=== PATIENT | male | born 1955 | race Caucasian/White ===

== ENCOUNTER 2016-09-04 16:42 | Emergency (ER) | payer OTHER ==
[~2016-09-04] VITALS: Ht 180.3 cm; Wt 98.9 kg
[~2016-09-04 16:42] MED LIST: AMOX500C25 PO; CEPH500C16 PO; IBUP-974 PO; METF500T64 PO; NORVASC; SULF1TAB12 PO; VAS10 PO; VASOTEC
[2016-09-04 17:07] VITALS: BP 164/83
--- NOTE | 2016-09-04 21:02 | NUR ---
PT TAKEN TO BED 7
--- NOTE | 2016-09-04 21:05 | NUR ---
PT IS 61/M BIB TO [facility] WITH C/O PT BEING REFERRED TO ER BY PCP FOR EVALUATION OF ELEVATED BLOOD SUGAR AND INTERMITTENT DIZZINESS SINCE THIS AM. HX DM, HTN, VERTIGO. DENIES V/D; SKIN IS PINK/WARM/DRY; AAOX4 WITH EVEN AND STEADY GAIT; LUNGS CLEAR BL; HR EVEN AND REGULAR; PT DENIES ANY FEVER, CP, SOB, OR COUGH AT THIS TIME; PATIENT STATES PAIN OF 0/10 AT THIS TIME; VSS; PATIENT POSITIONED FOR COMFORT; HOB ELEVATED; BEDRAILS UP X2; BED DOWN. ER MD MADE AWARE OF PT STATUS.
[2016-09-04] MEDS ORDERED: NACL 0.9% 1,000 ML IV ONE (21:10)
[2016-09-04] MEDS ORDERED: LISINOPRIL 5 MG TAB PO ONE (21:10)
[2016-09-04 21:30] LABS: BASOPHILS # (AUTO) 0.2 K/uL (0.00-0.22); BASOPHILS % (AUTO) 1.8 % (0.0-2.0); EOSINOPHILS # (AUTO) 0.1 K/uL (0-0.4); EOSINOPHILS % (AUTO) 1.6 % (0.0-4.0); HEMATOCRIT 46.4 % (36-52); HEMOGLOBIN 15.2 g/dL (12.0-18.0); LYMPHOCYTES # (AUTO) 1.6 K/uL (2.0-11.5); LYMPHOCYTES % (AUTO) 18.2 % (20.5-51.1); MEAN CORPUSCULAR HEMOGLOBIN 29 pg (27-31); MEAN CORPUSCULAR HGB CONC 33 g/dL (33-37); MEAN CORPUSCULAR VOLUME 87 fL (80-94); MONOCYTES # (AUTO) 0.5 K/uL (0.8-1.0); NEUTROPHILS # (AUTO) 6.4 K/uL (1.8-7.7); NEUTROPHILS % (AUTO) 72.4 % (42.2-75.2); PLATELET COUNT (AUTO) 228 K/uL (140-450); RED BLOOD CELL COUNT(AUTO) 5.32 MIL/uL (4.20-6.10); RED CELL DISTRIBUTION WIDTH 13.8 % (11.6-13.7); WHITE BLOOD COUNT (AUTO) 8.8 K/uL (4.8-10.8)
[2016-09-04] MEDS ORDERED: LISINOPRIL 10 MG TAB ONE (21:40)
--- NOTE | 2016-09-04 21:40 | NUR ---
ADMINISTERED 0.5 TAB OF 10MG LISINOPRIL. WASTED OTHER HALF OF TAB WITH HOUSE SUP ARMIDA.
[2016-09-04 21:41] LABS: ANION GAP 9.4 (8-16); CALCIUM 9.2 mg/dL (8.5-10.1); CARBON DIOXIDE 32.9 mmol/L (21-32); CREATININE 0.9 mg/dL (0.6-1.3); POTASSIUM 4.3 mmol/L (3.5-5.1)
[2016-09-04 21:48] LABS: ALBUMIN 3.9 g/dL (3.4-5.0); TOTAL BILIRUBIN 1.2 mg/dL (0.0-1.0); TOTAL PROTEIN, SERUM 7.1 g/dL (6.4-8.2)
[2016-09-04 21:50] LABS: INR 1.1 (0.8-1.2); PARTIAL THROMBOPLASTIN TIME 22.7 secs (22-35.6); PROTHROMBIN TIME 10.1 secs (10.8-13.4)
[2016-09-04] MEDS ORDERED: INSULIN HUMAN REGULAR 100 UNITS/ML 10 ML VIAL IVP ONE (22:00)
[2016-09-04 22:25] VITALS: BP 156/90
--- NOTE | 2016-09-04 22:26 | NUR ---
Patient discharged with v/s stable. Written and verbal after care instructions given and explained. Patient alert, oriented and verbalized understanding of instructions. Ambulatory with steady gait. All questions addressed prior to discharge. ID band removed. Patient advised to follow up with PMD. Rx of LISINOPRIL given. Patient educated on indication of medication including possible reaction and side effects. Opportunity to ask questions provided and answered.
== END 2016-09-04 22:26 | disposition home or self-care (01) ==
LOC: MED 16:42
DX: E11.65 Type 2 diabetes mellitus with hyperglycemia (principal); I10 Essential (primary) hypertension; J45.909 Unspecified asthma, uncomplicated; Z88.5 Allergy status to narcotic agent; Z79.899 Other long term (current) drug therapy
CPT/HCPCS: 36415; 80053; 82948; 85025; 85610; 85730; 96372; 99284; J1815; J7030

== ENCOUNTER 2018-12-21 17:32 | Emergency (ER) | payer OTHER ==
[~2018-12-21] VITALS: Ht 175.3 cm; Wt 90.7 kg
[~2018-12-21 17:32] MED LIST changes: +ENAL-197 PO; +GLU500 PO; -METF500T64 PO; -VAS10 PO
[2018-12-21 17:44] VITALS: BP 171/115
[2018-12-21 19:26] LABS: APPEARANCE,URINE CLEAR (CLEAR); BILIRUBIN,URINE NEGATIVE (NEGATIVE); BLOOD, URINE NEGATIVE (NEGATIVE); COLOR,URINE AMBER (YELLOW); LEUKOCYTE ESTERASE ,URINE NEGATIVE (NEGATIVE); NITRITE, URINE NEGATIVE (NEGATIVE); PH,URINE 5.5 (5.0-9.0); UGLUCOSE 1+ (NEGATIVE)
[2018-12-21 19:42] LABS: BASOPHILS # (AUTO) 0.1 K/uL (0.00-0.22); BASOPHILS % (AUTO) 0.8 % (0.0-2.0); EOSINOPHILS # (AUTO) 0.2 K/uL (0-0.4); EOSINOPHILS % (AUTO) 2.1 % (0.0-4.0); HEMATOCRIT 41.2 % (36-52); HEMOGLOBIN 14.2 g/dL (12.0-18.0); LYMPHOCYTES # (AUTO) 1.8 K/uL (2.0-11.5); LYMPHOCYTES % (AUTO) 23.3 % (20.5-51.1); MEAN CORPUSCULAR HEMOGLOBIN 29 pg (27-31); MEAN CORPUSCULAR HGB CONC 34 g/dL (33-37); MEAN CORPUSCULAR VOLUME 85.2 fL (80-94); MONOCYTES # (AUTO) 0.6 K/uL (0.8-1.0); MONOCYTES % (AUTO) 8.1 % (1.7-9.3); NEUTROPHILS # (AUTO) 5.1 K/uL (1.8-7.7); NEUTROPHILS % (AUTO) 65.7 % (42.2-75.2); PLATELET COUNT (AUTO) 249 K/uL (140-450); RED BLOOD CELL COUNT(AUTO) 4.83 MIL/uL (4.20-6.10); RED CELL DISTRIBUTION WIDTH 15.1 % (11.6-13.7); WHITE BLOOD COUNT (AUTO) 7.8 K/uL (4.8-10.8)
[2018-12-21 19:59] LABS: ANION GAP 14.7 (8-16); CARBON DIOXIDE 27.9 mmol/L (21-32); POTASSIUM 3.6 mmol/L (3.5-5.1)
[2018-12-21 20:03] LABS: PROTHROMBIN TIME 9.8 secs (10.8-13.4)
[2018-12-21 20:05] LABS: ALBUMIN 3.9 g/dL (3.4-5.0); TOTAL BILIRUBIN 1.1 mg/dL (0.0-1.0)
[2018-12-21] MEDS ORDERED: ASPIRIN 325 MG TAB PO ONE (21:15)
[2018-12-21 23:30] VITALS: BP 164/84
== END 2018-12-21 23:30 | disposition short-term general hospital (02) ==
LOC: MED 17:32
DX: G45.9 Transient cerebral ischemic attack, unspecified (principal); I10 Essential (primary) hypertension; E11.9 Type 2 diabetes mellitus without complications; J45.909 Unspecified asthma, uncomplicated; Z88.6 Allergy status to analgesic agent; Z79.2 Long term (current) use of antibiotics; Z79.84 Long term (current) use of oral hypoglycemic drugs; Z79.1 Long term (current) use of non-steroidal anti-inflammatories (NSAID)
CPT/HCPCS: 36415; 70450; 71045; 80053; 81003; 82948; 84484; 85025; 85610; 85730; 93005; 99285

== ENCOUNTER 2019-01-14 13:19 | Emergency (ER) | payer OTHER ==
[~2019-01-14] VITALS: Ht 177.8 cm; Wt 90.7 kg
--- NOTE | 2019-01-14 13:19 | NUR ---
Patient BIBA [facility] accompanied by Rocael CHAUDHRY, transferred to bed 4. RN evaluating patient at bedside.
[2019-01-14 13:20] VITALS: BP 141/78
--- NOTE | 2019-01-14 13:44 | NUR ---
63M PT BIBA C/O EPIGASTRIC PAIN LAST NIGHT AFTER TAKING GABAPENTIN, FEEL LIKE "BEING PUNCHED", DENIES TRAUMA. 12 LEAD PER EMS WAS NSR, NO ST ELEVATION. PT STATES PAIN AT 3/10. GCS15, AAOX4, RT SIDED WEAKNESS AND DYSPHAGIA FROM CVA 3 WEEKS AGO. VSS. MIRELA ISABEL AT BEDSIDE. HX- HTN, CVA 3 WEEKS AGO WITH RT SIDE DEFICITS NKA Addendum: 01/14/19 at 1413 by BROOKS 20G IV INSERTED BY EMS IN FIELD
[2019-01-14] MEDS ORDERED: NACL 0.9% 1,000 ML IV ONE ×2 (13:45→15:25)
--- NOTE | 2019-01-14 13:56 | NUR ---
X-RAY AT BEDSIDE
--- NOTE | 2019-01-14 13:59 | NUR ---
PT COING TO CT
--- NOTE | 2019-01-14 14:11 | NUR ---
Patient returned from CT scan. RN re-evaluating patient at bedside.
[2019-01-14 14:30] LABS: APPEARANCE,URINE CLEAR (CLEAR); BILIRUBIN,URINE NEGATIVE (NEGATIVE); BLOOD, URINE NEGATIVE (NEGATIVE); COLOR,URINE YELLOW (YELLOW); LEUKOCYTE ESTERASE ,URINE NEGATIVE (NEGATIVE); NITRITE, URINE NEGATIVE (NEGATIVE); UGLUCOSE TRACE (NEGATIVE)
[2019-01-14 14:33] LABS: HEMATOCRIT 42.5 % (36-52); HEMOGLOBIN 14.5 g/dL (12.0-18.0); MEAN CORPUSCULAR HEMOGLOBIN 29 pg (27-31); MEAN CORPUSCULAR HGB CONC 34 g/dL (33-37); PLATELET COUNT (AUTO) 233 K/uL (140-450); RED BLOOD CELL COUNT(AUTO) 4.94 MIL/uL (4.20-6.10); RED CELL DISTRIBUTION WIDTH 14.8 % (11.6-13.7); WHITE BLOOD COUNT (AUTO) 10.5 K/uL (4.8-10.8)
[2019-01-14 14:44] LABS: ALBUMIN 3.8 g/dL (3.4-5.0); ANION GAP 12.7 (8-16); CARBON DIOXIDE 29.6 mmol/L (21-32); CREATININE 0.9 mg/dL (0.7-1.3); POTASSIUM 3.3 mmol/L (3.5-5.1); TOTAL BILIRUBIN 0.9 mg/dL (0.0-1.0)
[2019-01-14 14:52] LABS: EOSINOPHILS % (MANUAL) 1 % (0-4); LYMPHOCYTES % (MANUAL) 16 % (20-46); MONOCYTES % (MANUAL) 4 % (5-12)
[2019-01-14] MEDS ORDERED: POTASSIUM CHLORIDE 10 MEQ TABER PO ONE (16:30)
[2019-01-14 16:48] VITALS: BP 148/84
--- NOTE | 2019-01-14 16:49 | NUR ---
Patient discharged with v/s stable. Written and verbal after care instructions given and explained. Patient verbalized understanding. Ambulatory with steady gait. All questions addressed prior to discharge. Advised to follow up with PMD.
== END 2019-01-14 16:49 | disposition home or self-care (01) ==
LOC: MED 13:19
DX: E86.0 Dehydration (principal); E87.6 Hypokalemia; R53.1 Weakness; K29.70 Gastritis, unspecified, without bleeding; I10 Essential (primary) hypertension; J45.909 Unspecified asthma, uncomplicated; E11.9 Type 2 diabetes mellitus without complications; Z86.73 Personal history of transient ischemic attack (TIA), and cerebral infarction without residual deficits; Z79.84 Long term (current) use of oral hypoglycemic drugs; Z79.899 Other long term (current) drug therapy
CPT/HCPCS: 36415; 70450; 71045; 80053; 81003; 83605; 83690; 84484; 85025; 87040; 87086; 93005; 96360; 96361; 99284; J7030

== ENCOUNTER 2019-05-04 16:51 | Emergency (ER) | payer OTHER ==
[~2019-05-04] VITALS: Ht 180.3 cm; Wt 98.9 kg
[2019-05-04 17:11] VITALS: BP 160/84
--- NOTE | 2019-05-04 17:24 | NUR ---
DR SLATER EVALUATING PT AT BEDSIDE
--- NOTE | 2019-05-04 17:29 | NUR ---
PT TO CT SCAN VIA [facility]
--- NOTE | 2019-05-04 17:51 | NUR ---
PUTTYING AND CALKING SUPERVISOR AT BEDSIDE
[2019-05-04 18:07] LABS: BASOPHILS % (AUTO) 0.6 % (0.0-2.0); EOSINOPHILS # (AUTO) 0.2 K/uL (0-0.4); EOSINOPHILS % (AUTO) 2.1 % (0.0-4.0); HEMOGLOBIN 13.9 g/dL (12.0-18.0); LYMPHOCYTES # (AUTO) 1.6 K/uL (2.0-11.5); LYMPHOCYTES % (AUTO) 21.1 % (20.5-51.1); MEAN CORPUSCULAR HEMOGLOBIN 30 pg (27-31); MEAN CORPUSCULAR HGB CONC 34 g/dL (33-37); MEAN CORPUSCULAR VOLUME 87.4 fL (80-94); MONOCYTES # (AUTO) 0.6 K/uL (0.8-1.0); MONOCYTES % (AUTO) 7.9 % (1.7-9.3); NEUTROPHILS # (AUTO) 5.3 K/uL (1.8-7.7); NEUTROPHILS % (AUTO) 68.3 % (42.2-75.2); PLATELET COUNT (AUTO) 238 K/uL (140-450); RED BLOOD CELL COUNT(AUTO) 4.69 MIL/uL (4.20-6.10); RED CELL DISTRIBUTION WIDTH 15.5 % (11.6-13.7); WHITE BLOOD COUNT (AUTO) 7.8 K/uL (4.8-10.8)
--- NOTE | 2019-05-04 18:10 | NUR ---
64/M BIB C/O FALL X TODAY AROUND 10 AM. DENIES LOC. PT STATES RIGHT LEG 'GAVE OUT' AND PT FELL TO FLOOR ONTO RIGHT SIDE OF BODY. SORENESS AT RT ELBOW POST FALL BUT DENIES PAIN AT THIS TIME. STATES FATIGUE AND WEAKNESS TO BL LEGS. PT ALSO ADDS NOTED L EYELID DROOPING "THE OTHER DAY", AND TINGLING THROUGHOUT BL HANDS AND BLE. DENIES VISION DEFICITS AT THIS TIME. AOX4. PMH- STROKE IN DEC 2018 (R SIDED DEFICIT), DM, HTN, NEUROPATHY
[2019-05-04 18:29] LABS: PROTHROMBIN TIME 9.9 secs (10.8-13.4)
[2019-05-04 18:32] LABS: ALBUMIN 3.8 g/dL (3.4-5.0); CREATININE 1.3 mg/dL (0.6-1.3); TOTAL BILIRUBIN 0.8 mg/dL (0.0-1.0)
[2019-05-04 18:40] LABS: ANION GAP 11.5 (8-16); CARBON DIOXIDE 30.5 mmol/L (21-32)
--- NOTE | 2019-05-04 18:43 | NUR ---
DR SLATER SPEAKING WITH PT AT BEDSIDE
--- NOTE | 2019-05-04 18:48 | NUR ---
EMT AT BEDSIDE FOR ORTHO IMMOBILIZER
--- NOTE | 2019-05-04 18:50 | NUR ---
PT RIGHT KNEE PLACED IN ORTHO KNEE IMMOBILIZER, IMMOBILIZER ADJUSTED TO PT SIZE, CMS WNL BEFORE AND AFTER.
--- NOTE | 2019-05-04 18:55 | NUR ---
IV removed, catheter intact and site benign. Applied folded 4x4 gauze and tape to stop bleeding.
[2019-05-04 18:58] VITALS: BP 160/84
== END 2019-05-04 18:58 | disposition home or self-care (01) ==
LOC: MED 16:51
DX: R26.9 Unspecified abnormalities of gait and mobility (principal); M25.521 Pain in right elbow; M25.561 Pain in right knee; H02.402 Unspecified ptosis of left eyelid; M54.2 Cervicalgia; J45.909 Unspecified asthma, uncomplicated; E11.9 Type 2 diabetes mellitus without complications; I10 Essential (primary) hypertension; Z86.73 Personal history of transient ischemic attack (TIA), and cerebral infarction without residual deficits; Z79.84 Long term (current) use of oral hypoglycemic drugs; Z79.899 Other long term (current) drug therapy
CPT/HCPCS: 29505; 36415; 70450; 72125; 80053; 82948; 85025; 85610; 85730; 99284